=== PATIENT | male | born 1985 | race Caucasian/White ===

== ENCOUNTER 2019-01-26 11:51 | Observation (INO) | payer BC ==
[~2019-01-26] VITALS: Ht 190.5 cm; Wt 112.5 kg
[2019-01-26] VITALS (22 sets, daily range): BP systolic 117–139; BP diastolic 55–81; PULSE 64–88; RESP 13–19; Ht 190.5 cm; Wt 112.5 kg
[~2019-01-26 11:51] MED LIST: CEFAZOLIN 1 GM INJ ONE; DESFLURANE 15 MIN ONE
[2019-01-26] MEDS: LACTATED RINGER'S 1,000 ML IV SCH (12:58)
--- NOTE | 2019-01-26 14:03 | PREAC ---
Date/Time of Note Date/Time of Note DATE: 01/26/19 TIME: 14:02 Anesthesia Eval and Record Evaluation Time Pre-Procedure Interview DATE: 01/26/19 TIME: 14:02 Age 33 Sex male NPO: 8 hrs Preoperative diagnosis LLE radiculopathy and foot drop Planned procedure Left spinal microdiscectomy L3-L4 Past Medical History Past Medical History: Includes Neuro: Peripheral neuropathy GI: Obesity Surgery & Anesthesia Issues Hx of difficult intubation Meds Anticoagulation: No Beta Akash within 24 hr: No Reason Beta Akash not given: Pt. not on B-Akash No Active Prescriptions or Reported Meds Current Medications Lactated Ringer's 1,000 ml @ 30 mls/hr Q24H IV Last administered on 01/26/19at 12:58; Admin Dose 30 MLS/HR; Start 01/26/19 at 13:00 Meds reviewed: Yes Allergies Coded Allergies: No Known Allergy (Unverified , 01/26/19) Allergies Reviewed: Yes Labs/Studies Labs Reviewed: Reviewed by anesthesiologist test: N/A Pre-procedure Exam Last vitals Vital Signs Date Temp Pulse Resp B/P (MAP) Pulse Ox O2 O2 Flow FiO2 Time Delivery Rate 01/26/19 98.6 64 16 134/79 99 12:52 (97) Airway: Adequate mouth opening, Adequate thyromental dist Mallampati: Mallampati III Teeth: Normal Lung: Normal Heart: Normal ASA Physical Status ASA physical status: 2 Emergency: None Planned Anesthetic General/MAC: ETT Planned Pain Management Parenteral pain med, Local by surgeon Pre-operative Attestations Prior to commencing anesthesia and surgery, the patient was re-evaluated, there was verification of: *The patient's identity *The results of appropriate recent lab work and preoperative vital signs *The above evaluation not changing prior to induction *Anesthetic plan, risk benefits, alternative and complications discussed with patient/family; questions answered; patient/family understands, accepts and wishes to proceed. AGUSTIN GONZALEZ MD Jan 26, 2019 14:03
[2019-01-26] MEDS ORDERED: PROPOFOL 20 ML ONE ×2 (14:29→16:05)
[2019-01-26] MEDS ORDERED: LIDOCAINE 2% (SDV) 5 ML INJ ONE (14:29)
[2019-01-26] MEDS ORDERED: ROCURONIUM 50 MG INJ ONE (14:29)
[2019-01-26] MEDS ORDERED: FENTAnyl 50 MCG/ML VIAL ONE (14:29)
[2019-01-26] MEDS ORDERED: SUCCINYLCHOLINE CHLORIDE 100 MG/5 ML SYG IV ONE (14:29)
[2019-01-26] MEDS ORDERED: MIDAZOLAM 1 MG/ML 2 ML INJ ONE (14:29)
[2019-01-26] MEDS ORDERED: DEXAMETHASONE 4 MG/ML 5 ML INJ ONE (14:31)
--- NOTE | 2019-01-26 14:59 | HPN ---
Date/Time of Note Date/Time of Note DATE: 01/26/19 TIME: 14:59 Interval H&P Admission Note Pt. seen H&P reviewed: No system changes OMARI PIERRE PA-C Jan 26, 2019 14:59
[2019-01-26] MEDS ORDERED: BISACODYL 10 MG SUPP PR PRN (15:00)
[2019-01-26] MEDS ORDERED: CEPASTAT LOZENGE MT PRN (15:00)
[2019-01-26] MEDS ORDERED: CYCLOBENZAPRINE 10 MG TAB PO PRN (15:00)
[2019-01-26] MEDS ORDERED: AL HYDROX/MG HYDROX/SIMETH 30 ML CUP PO PRN (15:00)
[2019-01-26] MEDS ORDERED: DIPHENHYDRAMINE 50 MG INJ IV PRN ×2 (15:00→18:00)
[2019-01-26] MEDS ORDERED: ACETAMINOPHEN 325 MG TAB PO PRN (15:00)
[2019-01-26] MEDS ORDERED: DIPHENHYDRAMINE 25 MG CAP PO PRN (15:00)
[2019-01-26] MEDS ORDERED: HYDROCODONE/APAP (10/325) TAB PO PRN (15:00)
[2019-01-26] MEDS ORDERED: HYDROmorphONE 0.5 MG/0.5 ML SYG IV PRN (15:00)
[2019-01-26] MEDS ORDERED: ONDANSETRON 4 MG INJ IV PRN ×2 (15:00→18:00)
[2019-01-26] MEDS ORDERED: NALOXONE (0.4 MG/ML) INJ IV PRN (15:00)
[2019-01-26] MEDS ORDERED: SURGIFOAM POWDER 1 GM KIT ONE (15:18)
[2019-01-26] MEDS ORDERED: BUPIVACAINE 0.25%/EPI (SDV) 30 ML INJ ONE (15:18)
[2019-01-26] MEDS ORDERED: THROMBIN (BOVINE) 5,000 UNIT VIAL TP ONE (15:18)
[2019-01-26] MEDS ORDERED: HEPARIN 1000 UNITS/ML 10 ML INJ ONE (15:19)
[2019-01-26] MEDS ORDERED: POLYMYXIN/BACITRACIN 1L IRRIG ONE (15:19)
[2019-01-26] MEDS ORDERED: CA CHLORIDE (GM) 10% 10 ML INJ ONE (15:19)
[2019-01-26] MEDS ORDERED: CEFAZOLIN 1 GM/50 ML (PMX) 50 ML IVPB SCH (16:00)
[2019-01-26] MEDS ORDERED: HYDROmorphONE 2 MG/ML SYG ONE (16:07)
[2019-01-26] MEDS ORDERED: METOCLOPRAMIDE 10 MG INJ ONE (16:08)
[2019-01-26] MEDS ORDERED: ONDANSETRON 4 MG INJ ONE (16:08)
[2019-01-26] MEDS ORDERED: METOPROLOL 5 MG INJ ONE (16:10)
[2019-01-26] MEDS ORDERED: BUPIVACAINE 0.25% (MPF) 30 ML INJ ONE (17:01)
[2019-01-26] MEDS ORDERED: NEOSTIGMINE 3 MG/3 ML SYRINGE ONE (17:09)
[2019-01-26] MEDS ORDERED: GLYCOPYRROLATE 0.4 MG INJ ONE (17:09)
--- NOTE | 2019-01-26 17:39 | SIPON ---
Date/Time of Note Date/Time of Note DATE: 01/26/19 TIME: 17:38 Operative Report Preoperative Diagnosis L4-5 HNP Postoperative Diagnosis L4-5 HNP Operation/Procedure Performed L4-5 discectomy Surgeon see signature line molding line assistant mckay Anesthesia: general Estimated blood loss: 10 - 50 ml's Transfusion Required none Specimen disk Grafts/Implants none Complications none PRINCESS TO MD Jan 26, 2019 17:39
--- NOTE | 2019-01-26 17:56 | PAC ---
Date/Time of Note Date/Time of Note DATE: 01/26/19 TIME: 17:56 Post-Anesthesia Notes Post-Anesthesia Note Last documented vital signs Vital Signs Date Temp Pulse Resp B/P (MAP) Pulse Ox O2 O2 Flow FiO2 Time Delivery Rate 01/26/19 98.9 17:42 01/26/19 64 16 134/79 99 12:52 (97) Activity: WNL Respiratory function: WNL Cardiovascular function: WNL Mental status: Baseline Pain reasonably controlled: Yes Hydration appropriate: Yes Nausea/Vomiting absent: Yes AGUSTIN GONZALEZ MD Jan 26, 2019 17:56
[2019-01-26] MEDS ORDERED: LEVALBUTEROL (NEB) 1.25 MG/0.5 ML AMP HHN PRN (18:00)
[2019-01-26] MEDS ORDERED: FENTAnyl 50 MCG/ML VIAL IV PRN ×2 (18:00)
[2019-01-26] MEDS ORDERED: HYDROmorphONE 1 MG/5 ML IV SYRINGE IV PRN ×2 (18:00)
--- NOTE | 2019-01-26 19:00 | OPR ---
DATE OF OPERATION: 01/26/2019 PREOPERATIVE DIAGNOSIS: Left L4-L5 disk herniation with radiculopathy. POSTOPERATIVE DIAGNOSIS: Left L4-L5 disk herniation with radiculopathy. PROCEDURES PERFORMED: 1. Left L4-5 hemilaminotomy, partial medial facetectomy, foraminotomy. 2. Left L4-L5 lumbar microdiskectomy. 3. Lateral localizing film x2. 4. Use of operative microscope. 5. Intraoperative neuromonitoring. PRIMARY SURGEON: Carl Jennings MD CORPORATE TRAVEL COUNSELOR: Mojgan Montenegro PA-C. NEED FOR PORTRAIT ARTIST: During this spinal surgical procedure, my assistant professor of criminal justice was used to retract and protect the spinal nerves and dural sac. My assistant professor of criminal justice also employed the suction catheters to ev acuate blood from the surgical field to improve visualization of the neural structures. The assistan t was medically necessary to facilitate the completion of the surgery in a safe and expeditious [facility] r. [facility] regulations, as well as hospital bylaws, preclude the use of non-licensed [facility] care personnel, such as operating room technicians, to perform these functions. FINDINGS: Neuromonitoring at start of the case revealed left L4 and L5 amplitude down 40%. At the e nd of the case, nerve signals returned to normal. The patient left paracentral herniation at the L4- 5 level. Quite a bit of vascularization was seen over the annulus. ESTIMATED BLOOD LOSS: 30 mL. DRAINS: None. SPECIMENS: L4-5 disk. COMPLICATIONS OF PROCEDURES: None. ANESTHESIOLOGIST: Dr. Blas. TYPE OF ANESTHESIA: General. INDICATIONS FOR PROCEDURE: This is a 33-year-old gentleman with left lumbar radiculopathy in the set ting of disk herniation at the L4-5 level. He had a hematoma which had resolved, but he was left wit h a foot drop and therefore is recommended he undergo the above procedure. Preoperatively, we discus sed risks, benefits and alternatives. He understood and wished to proceed. DESCRIPTION OF PROCEDURE IN DETAIL: The patient was identified in the preoperative holding area, [facility] [address] and marked in the operating room, where he was successfully placed under general anesthesia. Neuromonitoring leads were placed, sequential compressive devices were applied. Remote intraoperat kirk MRI performed by Dr. Jin from 1500 until 172 to include SSEP, MEP, and EMG. This was perf ormed by [facility]. The patient was turned prone position over Bryan frame. All bony promin ences was well-padded. Back was prepped and draped in the usual sterile fashion. I then placed spin al needles and took lateral film to confirm their correct levels. Once this was confirmed, I injecte d the skin, subcutaneous tissue with Marcaine and epinephrine. Incision was then made over the L4-5 level. Incision was taken down to dorsal fascia, which was incised with Bovie cautery. Then, subper iosteally dissected the L4 and L5 lamina. Kerrison was placed into the L4 lamina. Repeat lateral fi lms obtained to confirm the correct levels. Once this was confirmed, microscope was brought in. Lef t-sided hemilaminotomy, partial medial facetectomy, foraminotomy were performed. Ligamentum flavum w as then sharply dissected. I then identified the dura and the traversing nerve root. Significant va scular tissue was identified here and was cauterized. I then was able to identify the annulus. I co nfirmed that there was no hematoma there. I then made an annulotomy followed by limited microdiskect vito. At this point, all nerve signals returned to normal. I then irrigated the wound. I irrigated the disk space. Valsalva maneuver was performed and there was no leak of CSF. I then removed the re tractors. I took the microscope off the field. I injected plain Marcaine and then closing the incis ion in layers. I closed the deep fascia with #1 Vicryl stitch, closed the subcutaneous tissue with a 2-0 Vicryl suture, 4-0 Monocryl closure was then performed. Dermabond was then applied. The patien t was awakened from anesthesia and taken to the recovery room in stable condition. Lap, sponge, and instrument counts were correct x2. There were no apparent complications during the procedure. The patient will be admitted to the [facility] for routine postoperative care to include pain co ntrol, neurovascular checks, antibiotics, and physical therapy. Dictated By: CARL DELGADO/EDOUARD Conf#: [id number] DID#: [id number] CC: MOJGAN MONTENEGRO;*EndCC*
[2019-01-26] MEDS: D5W-0.45 NACL + KCL 20 MEQ 1,000 ML IV SCH (19:47)
--- NOTE | 2019-01-26 21:15 | CONS ---
DATE OF ADMISSION: 01/26/2019 DATE OF CONSULTATION: 01/26/2019 Thank you, Dr. Jennings, for asking me to participate in the medical management of this patient. REASON FOR CONSULTATION: History of anxiety and a left footdrop. HISTORY OF PRESENT ILLNESS: This 33-year-old man is now postop a lumbar spine surgery by Dr. Trav klein. The patient underwent an L4-L5 level diskectomy for herniated nucleus pulposus. The patient anika arently was having back pain with some radiation down his left leg. The pain has resolved but he was left with a left footdrop. PAST MEDICAL HISTORY: Remarkable for anxiety. ALLERGIES: HE HAS NO KNOWN DRUG ALLERGIES. PAST SURGICAL HISTORY: None. 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 He is single. Nonsmoker. He drinks alcohol socially . He lives alone. PHYSICAL EXAMINATION: GENERAL: At this time, reveals a well-developed man in no apparent distress. VITAL SIGNS: His temperature 98.9, pulse is 70, respirations 13, blood pressure 117/67, and O2 satur ation 95% on 3 liter nasal cannula. HEENT: Head: Normocephalic. Eyes: Extraocular muscles intact. NOSE AND MOUTH: Normal. NECK: Supple. No neck vein distention. LUNGS: Clear to auscultation. HEART: Regular rhythm. No murmurs, gallops, or rubs. ABDOMEN: Soft, nontender. No masses or megaly. EXTREMITIES: No peripheral edema. IMPRESSION: This patient is now postop a microdiskectomy at the L4-L5 level for a herniated disk. H e was having a footdrop preoperatively. He has a history of anxiety. I will manage the patient's an xiety. PLAN: 1. Continue current postop lumbar spine surgery protocol. 2. Check labs in the morning. 3. I will follow the patient along with you medically. Dictated By: SILVIO MCKEON MD ND/EDOUARD Conf#: [id number] DID#: [id number] CC: SHASHI ENRIQUE MD; PRINCESS JENNINGS MD; SILVIO MCKEON MD;*EndCC*
[2019-01-26] MEDS: DOCUSATE SODIUM 100 MG CAP PO SCH (21:35)
[2019-01-27] MEDS: HYDROCODONE/APAP (10/325) TAB PO PRN ×3 (00:05→13:39)
[2019-01-27] MEDS: CEFAZOLIN 1 GM/50 ML (PMX) 50 ML IVPB SCH ×2 (00:06→08:01)
[2019-01-27 00:10] VITALS: BP 129/69; PULSE 99; RESP 18
[2019-01-27] MEDS: D5W-0.45 NACL + KCL 20 MEQ 1,000 ML IV SCH ×2 (00:59→05:59)
[2019-01-27 07:42] VITALS: BP 145/86; PULSE 96; RESP 19
[2019-01-27] MEDS: DOCUSATE SODIUM 100 MG CAP PO SCH (08:01)
--- NOTE | 2019-01-27 08:40 | CONS ---
Assessment/Plan Assessment/Plan Hospital Course (Demo Recall) 1. This patient is now 1 day postop a lumbar spine surgery. He is awake and alert. His vital signs are stable and he is afebrile. 2. He will start physical therapy today as tolerated. Consultation Date/Type/Reason Admit Date/Time Jan 26, 2019 at 15:01 Initial Consult Date Type of Consult Medicine Date/Time of Note DATE: 01/27/19 TIME: 08:37 24 HR Interval Summary Free Text/Dictation Rik is now 1 day postop a lumbar spine surgery. He is awake and alert. He has no complaints. Constitutional: no complaints, improved Exam/Review of Systems Exam Vitals Vital Signs Date Temp Pulse Resp B/P (MAP) Pulse Ox O2 O2 Flow FiO2 Time Delivery Rate 01/27/19 98.4 96 19 145/86 97 Room Air 07:42 (105) 01/26/19 2.0 18:35 Intake and Output 01/26/19 01/26/19 01/27/19 1515:00 23:00 07:00 IntakeIntake Total 2200 ml 1300 ml OutputOutput Total 480 ml 950 ml BalanceBalance 1720 ml 350 ml Constitutional: alert, oriented, well developed Respiratory: clear to auscultation, normal air movement Cardiovascular: regular rate and rhythm Gastrointestinal: soft, non-tender Musculoskeletal: nl extremities to inspection Results Result Diagram: 01/27/19 0441 01/27/19 0441 Results 24hrs Laboratory Tests Test 01/27/19 04:41 01/27/19 07:21 White Blood Count 12.3 H Red Blood Count 4.12 L Hemoglobin 13.9 L Hematocrit 39.3 L Mean Corpuscular Volume 95.4 Mean Corpuscular Hemoglobin 33.7 H Mean Corpuscular Hemoglobin Concent 35.4 Red Cell Distribution Width 11.7 Platelet Count 213 Mean Platelet Volume 9.3 Immature Granulocytes % 0.900 H Neutrophils % 87.1 H Lymphocytes % 5.0 L Monocytes % 6.9 Eosinophils % 0.0 Basophils % 0.1 Nucleated Red Blood Cells % 0.0 Immature Granulocytes # 0.110 H Neutrophils # 10.7 H Lymphocytes # 0.6 L Monocytes # 0.8 Eosinophils # 0.0 Basophils # 0.0 Nucleated Red Blood Cells # 0.0 Sodium Level 140 Potassium Level 4.1 Chloride Level 106 Carbon Dioxide Level 26 Anion Gap 8 Blood Urea Nitrogen 8 Creatinine 0.74 Est Glomerular Filtrat Rate mL/min > 60 Glucose Level 135 Calcium Level 9.6 Magnesium Level 1.9 Lab Scanned Report REFERENCE LAB Medications Medication Current Medications Lactated Ringer's 1,000 ml @ 30 mls/hr Q24H IV Last administered on 01/26/19at 12:58; Admin Dose 30 MLS/HR; Start 01/26/19 at 13:00 Potassium Chloride/Dextrose/ Sod Cl 1,000 ml @ 100 mls/hr Q10H IV Last administered on 01/27/19at 05:59; Admin Dose 100 MLS/HR; Start 01/26/19 at 14:59 Acetaminophen/ Hydrocodone Bitart ([place] (10/325)) 1 tab Q4H PRN PO .PAIN 1-5 Last administered on 01/27/19at 00:05; Admin Dose 1 TAB; Start 01/26/19 at 15:00 Acetaminophen/ Hydrocodone Bitart ([place] (10/325)) 2 tab Q4H PRN PO .PAIN 6-10; Start 01/26/19 at 15:00 Hydromorphone HCl (Dilaudid) 0.2 mg Q1H PRN IV .BREAKTHROUGH PAIN; Start at 15:00 Ondansetron HCl (Zofran Inj) 4 mg Q6H PRN IV NAUSEA/VOMITING; Start 01/26/19 at 15:00 Bisacodyl (Dulcolax Supp) 10 mg DAILY PRN [place] .CONSTIPATION; Start 01/26/19 at 15:00 Docusate Sodium (Colace) 100 mg BID PO Last administered on 01/27/19at 08:01; Admin Dose 100 MG; Start 01/26/19 at 21:00 Al Hydrox/Mg Hydrox/Simethicone (Mag-Al Plus) 15 ml Q6H PRN PO .CONSTIPATION/DYSPEPSIA; Start 01/26/19 at 15:00 Acetaminophen (Tylenol Tab) 650 mg Q4H PRN PO GALLEGOS OR TEMP GREATER THAN 101.3F; Start 01/26/19 at 15:00 Cyclobenzaprine HCl (Flexeril) 5 mg TID PRN PO .MUSCLE SPASM; Start 01/26/19 at 15:00 Phenol (Cepastat Lozenge) 1 lozenge PRN PRN CHEL AGUIRRE THROAT; Start 01/26/19 at 15:00 Diphenhydramine HCl (Benadryl) 25 mg Q6H PRN PO .ITCHING; Start 01/26/19 at 15:00 Diphenhydramine HCl (Benadryl) 25 mg Q6H PRN IV .ITCHING; Start 01/26/19 at 15:00 Naloxone HCl (Narcan) 0.2 mg Q2M PRN IV .RR 8 BREATHS/MIN OR LESS; Start 01/26/19 at 15:00 Cefazolin Sodium 50 ml @ 100 mls/hr Q8H IVPB Last administered on 01/27/19at 08:01; Admin Dose 100 MLS/HR; Start 01/27/19 at 00:00; Stop 01/27/19 at 16:29 SILVIO MCKEON MD Jan 27, 2019 08:40
--- NOTE | 2019-01-27 12:48 | DS ---
Date/Time of Note Date/Time of Note DATE: 01/27/19 TIME: 12:47 Discharge Summary Admission/Discharge Info Admit Date/Time Jan 26, 2019 at 15:01 Discharge Date/Time January 27 Discharge Diagnosis s/p lumbar discectomy Patient Condition: Good Procedures lumbar discectomy Hospital Course patient was [facility] after undergoing the above procedure his postoperative cousre was uncomplicated by POD 1 he was deemed stable for d/c with follow up arranged with the undersigned Home Meds No Active Prescriptions or Reported Meds Primary Care Provider Not On Staff Doctor Pending Labs Laboratory Tests Test 01/27/19 04:41 01/27/19 07:21 White Blood Count 12.3 10^3/ul (4.8-10.8) Red Blood Count 4.12 10^6/ul (4.70-6.10) Hemoglobin 13.9 g/dl (14.0-18.0) Hematocrit 39.3 % (42.0-52.0) Mean Corpuscular Volume 95.4 fl (82.0-101.0) Mean Corpuscular Hemoglobin 33.7 pg (29.0-33.0) Mean Corpuscular 35.4 g/dl (32.0-37.0) Hemoglobin Concent Red Cell Distribution Width 11.7 % (11.5-14.5) Platelet Count 213 10^3/UL (140-415) Mean Platelet Volume 9.3 fl (7.4-10.4) Immature Granulocytes % 0.900 % (0.001-0.429) Neutrophils % 87.1 % (39.0-77.0) Lymphocytes % 5.0 % (15.0-51.0) Monocytes % 6.9 % (0.0-11.0) Eosinophils % 0.0 % (0.0-7.0) Basophils % 0.1 % (0.0-2.0) Nucleated Red Blood Cells % 0.0 /100WBC (0.0-0.0) Immature Granulocytes # 0.110 10^3/ul (0.0-0.031) Neutrophils # 10.7 10^3/ul (1.6-7.5) Lymphocytes # 0.6 10^3/ul (0.8-2.9) Monocytes # 0.8 10^3/ul (0.3-0.9) Eosinophils # 0.0 10^3/ul (0.0-0.5) Basophils # 0.0 10^3/ul (0.0-0.1) Nucleated Red Blood Cells # 0.0 10^3/ul (0.0-0.0) Sodium Level 140 mmol/L (135-144) Potassium Level 4.1 mmol/L (3.5-5.1) Chloride Level 106 mmol/L (97-110) Carbon Dioxide Level 26 mmol/L (21-31) Anion Gap 8 (5-13) Blood Urea Nitrogen 8 mg/dl (7-20) Creatinine 0.74 mg/dl (0.61-1.24) Est Glomerular Filtrat > 60 mL/min (>60) Rate mL/min Glucose Level 135 mg/dl (70-220) Calcium Level 9.6 mg/dl (8.4-10.2) Magnesium Level 1.9 mg/dl (1.7-2.5) Total Bilirubin 0.7 mg/dl (0.2-1.3) Direct Bilirubin 0.00 mg/dl (0.00-0.20) Indirect Bilirubin 0.7 mg/dl (0-1.1) Aspartate Amino 38 IU/L (15-46) Transf (AST/SGOT) Alanine 48 IU/L (13-69) Aminotransferase (ALT/SGPT) Alkaline Phosphatase 43 IU/L (42-121) Total Protein 6.5 g/dl (6.1-8.1) Albumin 4.0 g/dl (3.3-4.9) Lab Scanned Report REFERENCE LAB [id number] PRINCESS TO MD Jan 27, 2019 12:48
[2019-01-27] MEDS: LACTATED RINGER'S 1,000 ML IV SCH (13:00)
== END 2019-01-27 14:50 | disposition home or self-care (01) ==
LOC: SDS 11:51 → REC 15:01 → MS1 18:34
PROVIDERS: ADMIT Specialist; ATTEND Specialist
DX: M51.16 Intervertebral disc disorders with radiculopathy, lumbar region (principal)
CPT/HCPCS: 63030; 72020; 80048; 80076; 83735; 85025; 86999; 88304; 97116; 97161; G0378; J0690; J1100; J1170; J1644; J2250; J2405; J2710; J2765; J3010; J3480; J7120